=== PATIENT | female | born 1995 | race Caucasian/White ===

== ENCOUNTER 2024-09-19 09:22 | Emergency (ER) | payer SELFPAY ==
[~2024-09-19] VITALS: Ht 147.3 cm; Wt 59.0 kg
[2024-09-19 09:56] VITALS: BP 109/60; TEMP 98.5; O2SAT 98
== END 2024-09-19 09:57 | disposition home or self-care (01) ==
LOC: ER 09:24
DX: F10.129 Alcohol abuse with intoxication, unspecified (principal); F32.A Depression, unspecified; Z59.00 Homelessness unspecified; Z60.2 Problems related to living alone; Y90.9 Presence of alcohol in blood, level not specified